=== PATIENT | female | born 1950 | race Caucasian/White ===

== ENCOUNTER 2023-05-29 11:28 | Day surgery (SDC) | payer OTHER ==
[2023-05-29 08:33] LABS: Absolute Lymphocytes (CBC) 2.4 K/uL (0.7-4.9); MCV 91.7 fL (80-100); MPV 8.6 fL (7.6-11.3); Platelets 362 thou/uL (152-406); RBC Red Blood Cell Count 4.36 M/uL (3.86-4.86)
[2023-05-29 08:48] LABS: Potassium 3.5 mEq/L (3.5-5.1)
[2023-05-29] MEDS: Ringers Lactate 1,000 ML IV ONE (11:50)
[2023-05-29] MEDS ORDERED: LIDOCAINE 1% MPF 30 ML VIAL ONE (13:19)
[2023-05-29] MEDS ORDERED: propofoL 200 MG/20 ML VIAL IV ONE (13:19)
--- NOTE | 2023-05-29 14:27 | EKG ---
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
[2023-05-29 15:33] VITALS: BP 134/69; TEMP 97; O2SAT 97
== END 2023-05-29 15:05 | disposition home or self-care (01) ==
LOC: OR 11:28
PROVIDERS: ATTEND Surgery
PROC: 0DB68ZX Excision of Stomach, Via Natural or Artificial Opening Endoscopic, Diagnostic (ICD-10-PCS; 2023-05-29)
PROC: 0DB48ZX Excision of Esophagogastric Junction, Via Natural or Artificial Opening Endoscopic, Diagnostic (ICD-10-PCS; 2023-05-29)
PROC: 0DBM8ZX Excision of Descending Colon, Via Natural or Artificial Opening Endoscopic, Diagnostic (ICD-10-PCS; principal; 2023-05-29 13:30)
PROC: 0DB98ZX Excision of Duodenum, Via Natural or Artificial Opening Endoscopic, Diagnostic (ICD-10-PCS; 2023-05-29 13:30)
DX: Z12.11 Encounter for screening for malignant neoplasm of colon (principal); K64.8 Other hemorrhoids; R10.13 Epigastric pain; K44.9 Diaphragmatic hernia without obstruction or gangrene; K29.50 Unspecified chronic gastritis without bleeding; D12.4 Benign neoplasm of descending colon
CPT/HCPCS: 93005; 85025; 80048; 36415; 88312; 88305; 45380; 43239; J2704; J2001; J7120